=== PATIENT | male | born 1960 | race African-American/Black ===

== ENCOUNTER 2020-09-11 18:21 | Emergency (ER) | payer MEDICAID ==
[~2020-09-11] VITALS: Ht 180.3 cm; Wt 114.0 kg
[2020-09-11] MEDS ORDERED: INSU100V3 SUBCUT (18:27)
[2020-09-11 21:13] LABS: BASOPHILS % 0.4 % (0.0-2.0); EOSINOPHILS % 1.2 % (0.0-5.0); HEMATOCRIT. 40.4 % (42.0-52.0); HEMOGLOBIN. 13.2 g/dL (14.0-18.0); LYMPHOCYTES % 17.5 % (20.0-50.0); MEAN CORPUSCULAR HEMOGLOBIN 27.9 pg (28.0-32.0); MEAN CORPUSCULAR VOLUME 85.2 fL (80.0-94.0); MEAN PLATELET VOLUME 10.2 fl (7.4-10.4); MONOCYTES % 10.7 % (2.0-8.0); NEUTROPHILS % 70.2 % (40.0-76.0); PLATELET 211 x1000/uL (130-400); RED BLOOD CELL COUNT 4.75 mill/uL (4.7-6.1)
[2020-09-11 21:15] LABS: CHLORIDE 109 mEq/L (98-107)
[2020-09-11 23:09] VITALS: BP 147/86
== END 2020-09-11 23:10 | disposition home or self-care (01) ==
LOC: ER 18:21
DX: R00.2 Palpitations (principal); I10 Essential (primary) hypertension; I25.2 Old myocardial infarction; E11.9 Type 2 diabetes mellitus without complications
CPT/HCPCS: 36415; 71045; 80053; 84484; 85025; 99284

== ENCOUNTER 2024-04-12 12:15 | Emergency (ER) | payer MEDICARE, MEDICAID ==
[~2024-04-12] VITALS: Ht 188 cm; Wt 108.0 kg
[~2024-04-12 12:15] MED LIST: INSU100V3 SUBCUT
[2024-04-12 12:18] VITALS: TEMP 98.4; O2SAT 96
[2024-04-12] MEDS ORDERED: CYCL10TA21 MT (14:46)
[2024-04-12] MEDS ORDERED: IBUP-2029 MT (14:46)
[2024-04-12] MEDS ORDERED: BO1 TP (14:47)
[2024-04-12 15:08] VITALS: BP 147/73; PULSE 80; RESP 21; O2SAT 97
== END 2024-04-12 15:10 | disposition home or self-care (01) ==
LOC: ER 12:15
DX: S09.90XA Unspecified injury of head, initial encounter (principal); M17.12 Unilateral primary osteoarthritis, left knee; M19.022 Primary osteoarthritis, left elbow; E11.9 Type 2 diabetes mellitus without complications; I10 Essential (primary) hypertension; W18.30XA Fall on same level, unspecified, initial encounter; Y93.89 Activity, other specified; Y92.89 Other specified places as the place of occurrence of the external cause; Y99.8 Other external cause status
CPT/HCPCS: 73070; 73560; 70450; 72125; 99284; Z7610